=== PATIENT | male | born 1950 | race Caucasian/White ===

== ENCOUNTER → 2016-05-18 | Outpatient (CLI) | payer MEDICARE, OTHER ==
[2016-05-19 09:58] LABS: PROSTATE SPECIFIC ANTIGEN 4.8 ng/mL (0.0-4.0); PSA % FREE 18.3 % (.); PSA FREE 0.88 ng/mL
== END ==
LOC: OD 10:40
PROVIDERS: ATTEND Urology
DX: I10 Essential (primary) hypertension (principal); N40.1 Benign prostatic hyperplasia with lower urinary tract symptoms; R97.20 Elevated prostate specific antigen [PSA]
CPT/HCPCS: 36415; 84154

== ENCOUNTER → 2016-10-12 | Outpatient (CLI) | payer MEDICARE, OTHER ==
[2016-10-18 07:01] LABS: PROSTATE SPECIFIC ANTIGEN 9.6 ng/mL (0.0-4.0); PSA % FREE 18.9 % (.); PSA FREE 1.81 ng/mL
== END ==
LOC: OD 15:28
PROVIDERS: ATTEND Urology
DX: N40.1 Benign prostatic hyperplasia with lower urinary tract symptoms (principal); I10 Essential (primary) hypertension; R97.20 Elevated prostate specific antigen [PSA]; E29.1 Testicular hypofunction
CPT/HCPCS: 36415; 84154

== ENCOUNTER 2017-01-24 07:15 | Day surgery (SDC) | payer MEDICARE, OTHER ==
--- NOTE | 2017-01-18 09:08 | HISTORY AND PHYSICAL E ---
History and Physical NAME: CHITRA CLIFTON : 1950 AGE: 66Y ADMITTED: 01/24/2017 ROOM: CHIEF COMPLAINT: Reflux, history of Batres. PLAN: Upper endoscopy. I saw the patient in 2016 where he underwent upper endoscopy. MEDICATIONS: 1. Methadone. 2. Nexium. 3. Nitroglycerin. 4. Oxycodone. FAMILY HISTORY: Father has heart disease. Mom is living, she is above age 80. SOCIAL HISTORY: He smokes one-half pack per day. PHYSICAL EXAMINATION: GENERAL: Pleasant, alert, oriented. VITAL SIGNS: Blood pressure 120/60, pulse 80, respirations 16, temp is 98. HEAD, EYES, EARS, NOSE AND THROAT: Normal. ABDOMEN: Soft. NEUROLOGICAL: Exam negative. Patient did have colonoscopy in 2015 showing benign looking diminutive rectosigmoid polyps and diverticulosis. At this time, patient for upper scope. CONCLUSIONS: 1. Reflux. 2. Batres esophagus. PLAN: Upper scope. DICTATING PHYSICIAN: QUINTON MCKAY M.D. [id number] [facility]#: [id number] ID: [id number] JOB#: [id number] ACCT: [id number] cc:ELVER TEAGUE M.D., MAHMOUD M.D. >
--- NOTE | 2017-01-18 09:09 | HISTORY AND PHYSICAL E ---
History and Physical NAME: CHITRA CLIFTON : 1950 AGE: 66Y ADMITTED: 01/24/2017 ROOM: CHIEF COMPLAINT: Reflux, history of Batres's. Plan upper scope. HISTORY OF PRESENT ILLNESS: The patient was seen in 11/2015 for upper scope. Patient did have colonoscopy in 01/2016 showing diverticulosis. At this time, the patient presented regarding upper endoscopy. MEDICATIONS: 1. Nitroglycerin. 2. Nexium. 3. Oxycodone. 4. Aspirin. 5. Lansoprazole. 6. Amoxicillin. 7. Claritin. 8. Beclomethasone. 9. Prozac. FAMILY HISTORY: Father has heart disease. Mom is living. SOCIAL HISTORY: The patient smokes. PHYSICAL EXAMINATION: GENERAL: Pleasant, alert, oriented. VITAL SIGNS: Blood pressure 120/60, pulse 80, respirations 18, temp is 98. HEAD, EYES, EARS, NOSE, THROAT: Normal. NECK: Supple. LUNGS: Clear. ABDOMEN: Soft. NEUROLOGIC: Exam negative. CONCLUSION: 1. Reflux. 2. Batres's esophagus. PLAN: Upper scope, scheduled 01/24. DICTATING PHYSICIAN: QUINTON MCKAY M.D. [id number] PHY#: [id number] ID: [id number] JOB#: [id number] ACCT: [id number] cc:[facility] QUINTON AJ M.D. >
[2017-01-24] MEDS ORDERED: GLYCOPYRROLATE INJ 0.4 MG/2 ML VIAL ONE (07:26)
[2017-01-24] MEDS ORDERED: ONDANSETRON HCL INJ/PF 4 MG/2 ML SDV ONE (07:26)
[2017-01-24] MEDS ORDERED: NALOXONE HCL INJ/PF 0.4 MG/1 ML SDV ONE (07:26)
[2017-01-24] MEDS ORDERED: FLUMAZENIL INJ 0.5 MG/5 ML VIAL ONE (07:27)
[2017-01-24] MEDS ORDERED: FENTANYL CITRATE INJ/PF 100 MCG/2 ML AMPUL ONE (07:27)
[2017-01-24] MEDS ORDERED: MIDAZOLAM 2 MG/2 ML INJ ONE (07:27)
[2017-01-24] MEDS ORDERED: EPINEPHRINE INJ 1 MG/10 ML DISP.SYRIN ONE (07:27)
[2017-01-24] MEDS: MIDAZOLAM 2 MG/2 ML INJ ONE ×2 (08:12→08:15)
[2017-01-24 09:35] LABS: ABSOLUTE EOSINOPHILS # (AUTO) 0.5 10^3/uL (0.0-0.6); ABSOLUTE LYMPHOCYTES (AUTO) 1.7 10^3/uL (0.5-4.7); ABSOLUTE MONOCYTES (AUTO) 0.4 10^3/uL (0.1-1.4); ABSOLUTE NEUT (AUTO) 2.6 10^3/uL (1.7-8.2); BASOPHILS % (AUTO) 0.7 % (0-2); HEMATOCRIT 39.3 % (37.9-51.0); HEMOGLOBIN 13.6 g/dL (13.5-17.0); HGB HCT DIFFERENCE 1.5; LYMPHOCYTES % (AUTO) 32.8 % (13-45); MEAN CORPUSCULAR HEMOGLOBIN 31.4 pg (27.0-33.4); MEAN CORPUSCULAR HGB CONC 34.6 g/dL (32.0-36.0); MEAN CORPUSCULAR VOLUME 91 fl (80-97); MONOCYTES % (AUTO) 8.4 % (3-13); RED BLOOD COUNT 4.33 10^6/uL (4.35-5.55); RED CELL DISTRIBUTION WIDTH 13.5 % (11.5-14.0); SEGMENTED NEUTROPHILS % (AUTO) 48.1 % (42-78); WHITE BLOOD COUNT 5.3 10^3/uL (4.0-10.5)
[2017-01-24 09:37] VITALS: BP 143/77
--- NOTE | 2017-01-24 14:45 | DISCHARGE SUMMARY E ---
Discharge Summary NAME: CHITRA CLIFTON : 1950 AGE: 66Y ADMITTED: 01/24/2017 DISCHARGED: 01/24/2017 PROCEDURE: EGD with biopsy. HISTORY: Patient is 66. Underwent upper scope showing Batres's esophagus. Biopsy obtained. No evidence of malignancy. Patient does have history of multiple upper and lower scope. Today's upper scope shows distal esophagitis with Batres's esophagus. Biopsy obtained. No evidence of malignancy. No ulcers. FINAL DIAGNOSIS: 1. Batres's esophagus. 2. Chronic reflux. 3. History of colon polyps. PLAN: Continue PPI. Hold aspirin for 5 days. Baseline CBC and CEA. Patient to see us in the office in the next few days. Consideration for followup endoscopy in 1 year pending biopsy results. DICTATING PHYSICIAN: QUINTON MCKAY M.D. [id number] PHY#: [id number] ID: [id number] JOB#: [id number] ACCT: [id number] cc:ELVER TEAGUE M.D., MAHMOUD M.D. >
--- NOTE | 2017-01-24 14:45 | OPERATIVE REPORT E ---
Operative Report NAME: CHITRA CLIFTON : 1950 AGE: 66Y DATE OF SURGERY: 01/24/2017 ROOM: PREOPERATIVE DIAGNOSES: 1. Reflux. 2. Batres's. POSTOPERATIVE DIAGNOSES: 1. Reflux. 2. Batres's esophagus. PROCEDURES: 1. Esophagoscopy. 2. Gastroscopy. 3. Duodenoscopy. SURGEON: QUINTON MCKAY M.D. TISSUE REMOVED OR ALTERED: Multiple esophageal biopsies. ANESTHESIA: Versed 3, fentanyl 100. DESCRIPTION OF PROCEDURE: Baby scope passed under guided vision, no difficulties. Esophagoscopy junction at 40. Distal Batres's esophagus. No evidence of malignancy. Biopsy obtained. Gastroscopy: No ulcers. Mild gastritis. Duodenoscopy: Duodenal bulb normal. Descending duodenum normal. CONCLUSION: 1. Mild gastritis. 2. Distal esophagitis. 3. Batres's esophagus. PLAN: Hold aspirin, nonsteroidal 5 days. Awaiting biopsy results. Continue PPI. Consider followup upper endoscopy after a year pending biopsy results. DICTATING PHYSICIAN: QUINTON MCKAY M.D. [id number] Y#: [id number] ID: [id number] JOB#: [id number] ACCT: [id number] cc:ELVER TEAGUE M.D., MAHMOUD M.D. >
== END 2017-01-24 10:50 | disposition home or self-care (01) ==
LOC: END 07:15
PROVIDERS: ATTEND Specialist
PROC: 0DB48ZX Excision of Esophagogastric Junction, Via Natural or Artificial Opening Endoscopic, Diagnostic (ICD-10-PCS; principal; 2017-01-24 08:00)
DX: K22.70 Barrett's esophagus without dysplasia (principal); K21.9 Gastro-esophageal reflux disease without esophagitis; K29.70 Gastritis, unspecified, without bleeding; R97.0 Elevated carcinoembryonic antigen [CEA]; F17.210 Nicotine dependence, cigarettes, uncomplicated; Z86.010 Personal history of colon polyps; Z79.899 Other long term (current) drug therapy; Z79.82 Long term (current) use of aspirin
CPT/HCPCS: 43239; 36415; 82962; 82378; 85025; 88305 ×2; J2250; J3010; J2405; J0171; J2310; J3490

== ENCOUNTER 2017-08-06 07:30 | Day surgery (SDC) | payer MEDICARE, OTHER ==
[~2017-08-06 07:30] MED LIST: PROPOFOL INJ 200 MG/20 ML VIAL IV ONE
[2017-08-06] MEDS ORDERED: PROPOFOL INJ 200 MG/20 ML VIAL IV ONE (08:49)
[2017-08-06 09:14] VITALS: BP 119/75
--- NOTE | 2017-08-06 12:47 | Operative Report ---
Operative Report DATE OF SURGERY: 08/06/17 Operative Report: The risks, benefits and alternatives of the procedure including risks of bleeding, perforation requiring surgery are explained to the patient in detail and informed consent is obtained. Patient is taken back to the endoscopy suite and placed in the left, lateral decubital position. Timeout was called. Propofol medications administered. A rectal examination is done which did not reveal any masses, tears or fissures. An Olympus videoscope was inserted into the patient's rectum. The scope was then carefully advanced all the way to the cecum. The cecum was identified by the usual anatomical landmarks including the ileocecal valve as well as the appendiceal office. Photodocumentation was obtained. The scope was then sequentially pulled back via the various segments of the colon including the ascending colon, hepatic flexure, transverse colon, splenic flexure, descending colon and finally in to the rectosigmoid portions of the colon. Retroflexion maneuvers performed. The risks benefits and alternatives of the procedure explained to the patient in detail and informed consent is obtained.A GIF Olympus video scope was inserted into the patient's mouth and hypopharynx, the esophagus is identified intubated and insufflated, the scope was then advanced through the esophagus stomach and duodenum, retroflexion maneuver is done, the esophagus stomach and first and second portions of the duodenum examined PREOPERATIVE DIAGNOSIS: Known history of Batres's esophagus. Colorectal cancer screening POSTOPERATIVE DIAGNOSIS: Right side colon Inflammation status post biopsy rule out collagenous colitis. Diverticulosis. Internal hemorrhoids. Gastritis status post biopsy rule out Helicobacter pylori. Batres's esophagus proven by biopsy in the past now for ablation OPERATION: Colonoscopy with biopsy. EGD with ablation. EGD with biopsy SURGEON: DIANNA GILL ANESTHESIA: LMAC TISSUE REMOVED OR ALTERED: As noted above. COMPLICATIONS: None. ESTIMATED BLOOD LOSS: None. INTRAOPERATIVE FINDINGS: As noted above. PROCEDURE: Patient tolerated procedure well. No immediate postprocedure complications are noted. Patient discharged in good condition. Discharge date August 06, 2017 Discharge diet: Regular. Discharge activity: Regular. 2-3 week follow-up to discuss findings. Patient is instructed to call the office or proceed to the emergency room should there be any further problems or questions. We will await pathology. Surveillance for retreatment of Batres's in 1 year.
== END 2017-08-06 09:17 | disposition home or self-care (01) ==
LOC: END 07:30
PROVIDERS: ATTEND Internal Medicine Gastroenterology
PROC: 0DB68ZX Excision of Stomach, Via Natural or Artificial Opening Endoscopic, Diagnostic (ICD-10-PCS; principal; 2017-08-06 08:30)
PROC: 0DBF8ZX Excision of Right Large Intestine, Via Natural or Artificial Opening Endoscopic, Diagnostic (ICD-10-PCS; 2017-08-06 08:30)
DX: K22.70 Barrett's esophagus without dysplasia (principal); Z12.11 Encounter for screening for malignant neoplasm of colon; K52.9 Noninfective gastroenteritis and colitis, unspecified; K57.30 Diverticulosis of large intestine without perforation or abscess without bleeding; K64.8 Other hemorrhoids; K29.50 Unspecified chronic gastritis without bleeding; K62.89 Other specified diseases of anus and rectum; R01.1 Cardiac murmur, unspecified; I25.2 Old myocardial infarction; Z88.8 Allergy status to other drugs, medicaments and biological substances; Z88.6 Allergy status to analgesic agent
CPT/HCPCS: 43270; 43239; 45380; 82962; 88342 ×2; 88305 ×2; J2704; 813

== ENCOUNTER → 2018-07-09 | Outpatient (CLI) | payer MEDICARE, OTHER ==
--- NOTE | 2018-07-09 16:10 | RADIOLOGY REPORT (SQ) ---
EXAM DESCRIPTION: MRI LUMBAR SPINE WITHOUT COMPLETED DATE/TIME: 07/09/2018 2:26 pm REASON FOR STUDY: LUMBAR RADICULOPATHY (M54.16) M54.16 RADICULOPATHY, LUMBAR REGION COMPARISON: None. TECHNIQUE: Sagittal and Axial imaging includes T1, T2, STIR and gradient echo sequences. Coronal T2/ HASTE imaging. LIMITATIONS: None. FINDINGS: VISUALIZED UPPER ABDOMEN: Renal cysts are present. SEGMENTATION: No transitional anatomy. The lowest well-developed disc space is labeled L5-S1. ALIGNMENT: Anatomic. VERTEBRAE: Intact. BONE MARROW: Normal. No marrow replacement or reactive changes. DISC SIGNAL: Normal. No significant abnormal signal or loss of height. POSTERIOR ELEMENTS: Generally intact. No pars defect evident. HARDWARE: None in the spine. CORD AND CONUS: Normal in size and signal intensity. Conus at the T12-L1 level. SOFT TISSUES: No aortic aneurysm seen. No bulky retroperitoneal adenopathy or mass. No paraspinal mas s or fluid. L1-L2: No significant spinal stenosis or exit foraminal stenosis. L2-L3: No significant spinal stenosis or exit foraminal stenosis. L3-L4: There is mild circumferential disc bulging with no significant central canal or foraminal sten osis. L4-L5: There appears to be a small extruded disc fragment posterior to the L4 vertebral body that dis torts the thecal sac and narrows the inferior recess of the neural foramen but does not entrap the ex iting nerve. Hypertrophic facet changes and ligamentum flavum hypertrophy narrow the spinal canal in transverse diameter. L5-S1: Shallow broad-based disc bulge with no central canal or foraminal stenosis. LOWER THORACIC: Incompletely imaged. No stenosis seen. SACRUM: Visualized upper sacrum intact. OTHER: No other significant findings. IMPRESSION: Mild disc bulges as described. There is what appears to be a small extruded disc fragme nt at L4 as described. This distorts the thecal sac on the right. There is facet arthropathy at L4- 5. TECHNICAL DOCUMENTATION: JOB ID: [id number] [employer]- All Rights Reserved Reading location - IP/workstation name: [email or web address]
== END ==
LOC: RAD 12:34
PROVIDERS: ATTEND Internal Medicine
DX: M54.16 Radiculopathy, lumbar region (principal)
CPT/HCPCS: 72148

== ENCOUNTER 2018-09-16 08:46 | Day surgery (SDC) | payer MEDICARE, OTHER ==
[2018-09-16] MEDS ORDERED: GLYCOPYRROLATE INJ 0.4 MG/2 ML VIAL ONE (09:52)
[2018-09-16] MEDS ORDERED: PROPOFOL INJ 200 MG/20 ML VIAL IV ONE (10:02)
[2018-09-16 11:18] VITALS: BP 129/76
--- NOTE | 2018-09-16 13:13 | Operative Report ---
Operative Report DATE OF SURGERY: 09/16/18 Operative Report: The risks, benefits and alternatives of the procedure the risk of bleeding, perforation requiring surgery have been explained to the patient in detail and informed consent has been obtained. Patient is brought back to the endoscopy suite and placed in the left, lateral decubital position. Timeout was called. Propofol medication is administered. Rectal examination is done which did not reveal any masses, tears or fissures. An Olympus videoscope was introduced into the patient's rectum. The scope was then carefully advanced all the way to the cecum. The cecum was identified by the usual anatomical landmarks of the ileocecal valve as well as the appendiceal office. Photodocumentation is obtained. The scope was then sequentially pulled back via the various segments of the colon including the ascending colon, hepatic flexure, transverse colon, splenic flexure, descending colon and finally into the rectosigmoid portions of the colon. Retroflexion maneuvers performed. The risks benefits and alternatives of the procedure explained to the patient in detail and informed consent is obtained.A GIF Olympus video scope was inserted into the patient's mouth and hypopharynx, the esophagus is identified intubated and insufflated, the scope was then advanced through the esophagus stomach and duodenum retroflexion maneuver is done ,the esophagus stomach and first and second portions of the duodenum examined. PREOPERATIVE DIAGNOSIS: Personal history of polyp. Previous history of Batres's with unknown degree of dysplasia POSTOPERATIVE DIAGNOSIS: Mild inflammation noted on the right side of the colon status post biopsy. internal hemorrhoids. Gastritis status post biopsy without Helicobacter pylori. [place] of Batres's esophagus that ablated using radiofrequency ablation. OPERATION: Colonoscopy with biopsy. EGD with radiofrequency ablation. EGD with biopsy SURGEON: DIANNA GILL ANESTHESIA: LMAC TISSUE REMOVED OR ALTERED: As noted above. COMPLICATIONS: None. ESTIMATED BLOOD LOSS: None. INTRAOPERATIVE FINDINGS: As noted above. PROCEDURE: Patient tolerated the procedure well. No immediate postprocedure complications are noted. Patient is discharged in good condition. Discharge date 09/16/2018. Discharge diet: Regular. Discharge activity regular. 2 to 3-week follow-up to discuss findings. Patient is instructed to call the office or proceed to the emergency room should there be any further proximal questions. I will wait on the pathology. 5-year surveillance colonoscopy.
== END 2018-09-16 10:47 | disposition home or self-care (01) ==
LOC: END 08:46
PROVIDERS: ATTEND Internal Medicine Gastroenterology
DX: K63.89 Other specified diseases of intestine (principal); K52.9 Noninfective gastroenteritis and colitis, unspecified; K44.9 Diaphragmatic hernia without obstruction or gangrene; K64.8 Other hemorrhoids; K29.50 Unspecified chronic gastritis without bleeding; K22.70 Barrett's esophagus without dysplasia; Z86.010 Personal history of colon polyps; I10 Essential (primary) hypertension; E11.9 Type 2 diabetes mellitus without complications; R01.1 Cardiac murmur, unspecified; Z79.51 Long term (current) use of inhaled steroids; Z79.82 Long term (current) use of aspirin; Z79.899 Other long term (current) drug therapy
CPT/HCPCS: 43270; 43239; 45380; 88342 ×2; 88305 ×2; J2704

== ENCOUNTER → 2019-01-03 | Outpatient (CLI) | payer MEDICARE, OTHER ==
--- NOTE | 2019-01-03 14:43 | RADIOLOGY REPORT (SQ) ---
EXAM DESCRIPTION: MRI CERVICAL SPINE WITHOUT COMPLETED DATE/TIME: 01/03/2019 2:25 pm REASON FOR STUDY: CERVICAL RADICULOPATHY (M54.12) M54.16 RADICULOPATHY, LUMBAR REGION M54.12 RADIC ULOPATHY, CERVICAL REGION COMPARISON: 10/22/2010 TECHNIQUE: Sagittal and Axial imaging includes T1, T2, STIR and gradient echo sequences. LIMITATIONS: None. FINDINGS: ALIGNMENT: Slight reversal of the normal cervical lordosis. VERTEBRAE: Intact. BONE MARROW: Normal. No marrow replacement or reactive changes. DISCS: Annular disc bulging throughout the cervical spine with disc space narrowing and loss of giulia l water signal. HARDWARE: None in the spine. CORD AND BASE OF BRAIN: Normal in size and signal intensity. SOFT TISSUES: No soft tissue masses. C1-C2: No significant spinal stenosis. C2-C3: No significant spinal stenosis or exit foraminal stenosis. C3-C4: Broad-based disc/osteophyte complex with slight effacement anterior thecal sac. Slight asymme tric narrowing of the right neural foramina. C4-C5: Broad-based disc/osteophyte complex with mild central stenosis and bilateral foraminal stenosi s. C5-C6: Broad-based disc/ osteophyte complex. Mild central canal narrowing. Bilateral foraminal narr owing right greater than left. C6-C7: Broad-based annular disc bulging. This is asymmetric on the left resulting in asymmetric left foraminal narrowing. C7-T1: Broad-based annular disc bulging with bilateral foraminal narrowing left greater than right. UPPER THORACIC: Incompletely imaged. No significant spinal stenosis or exit foraminal stenosis. OTHER: No other significant finding. IMPRESSION: Multilevel spondylosis which has progressed since 2010. Broad-based disc/ osteophyte complex at C3-4 with asymmetric narrowing of the right neural foramina. Broad-based disc/ osteophyte complex at C4-5 with mild central stenosis and bilateral foraminal steno sis. Mild central canal narrowing at C5-C6 with bilateral foraminal narrowing right greater than left. Th is is secondary to a broad-based disc/ osteophyte complex. Asymmetric narrowing of the left neural foramina at C6-C7. Bilateral foraminal narrowing at C7-T1. TECHNICAL DOCUMENTATION: JOB ID: [id number] [employer]- All Rights Reserved Reading location - IP/workstation name: [email or web address]
--- NOTE | 2019-01-03 15:14 | RADIOLOGY REPORT (SQ) ---
EXAM DESCRIPTION: MRI LUMBAR SPINE WITHOUT COMPLETED DATE/TIME: 01/03/2019 2:24 pm REASON FOR STUDY: LUMBAR RADICULOPATHY (M54.16) M54.16 RADICULOPATHY, LUMBAR REGION M54.12 RADICUL OPATHY, CERVICAL REGION COMPARISON: None. TECHNIQUE: Sagittal and Axial imaging includes T1, T2, STIR and gradient echo sequences. Coronal T2/ HASTE imaging. LIMITATIONS: None. FINDINGS: VISUALIZED UPPER ABDOMEN: Limited evaluation. No acute or suspicious findings suggested. SEGMENTATION: No transitional anatomy. The lowest well-developed disc space is labeled L5-S1. ALIGNMENT: Anatomic. VERTEBRAE: Intact. BONE MARROW: Normal. No marrow replacement or reactive changes. DISC SIGNAL: Decreased signal intensity particularly at L2-3, L3-4, and L5-S1. POSTERIOR ELEMENTS: Generally intact. No pars defect evident. HARDWARE: None in the spine. CORD AND CONUS: Normal in size and signal intensity. Conus at the T12-L1 level. SOFT TISSUES: Renal cysts. No aortic aneurysm. L1-L2: No significant spinal stenosis or exit foraminal stenosis. L2-L3: Mild concentric disc bulging slightly asymmetrical to the left. No central canal or foraminal stenosis. L3-L4: Mild concentric disc bulging. No central canal or foraminal stenosis. L4-L5: Mild concentric disc bulging that is slightly asymmetrical to the right. May contact the exit ing nerve root outside of the neural foramen. L5-S1: No significant spinal stenosis or exit foraminal stenosis. LOWER THORACIC: Incompletely imaged. No stenosis seen. SACRUM: Visualized upper sacrum intact. OTHER: No other significant findings. IMPRESSION: Mild disc changes as described. Most significant finding appears to be at L4-5 where th e bulging disc may contact the exiting nerve root outside of the right neural foramen. TECHNICAL DOCUMENTATION: JOB ID: [id number] [employer]- All Rights Reserved Reading location - IP/workstation name: [email or web address]
== END ==
LOC: RAD 13:05
PROVIDERS: ATTEND Internal Medicine
DX: M54.16 Radiculopathy, lumbar region (principal); M54.12 Radiculopathy, cervical region; M48.02 Spinal stenosis, cervical region
CPT/HCPCS: 72141; 72148

== ENCOUNTER 2019-06-29 07:15 | Emergency (ER) | payer MEDICARE, OTHER ==
[2019-06-29 07:23] VITALS: BP 130/77
[2019-06-29] MEDS ORDERED: ONDANSETRON 4 MG TAB.RAPDIS PO ONE (08:06)
[2019-06-29] MEDS ORDERED: LIDOCAINE 2% INJ (20 MG/ML) 20 ML MDV INJ ONE (10:05)
[2019-06-29] MEDS ORDERED: DIPH/PERTUSS(ACELL)/TETANUS VAC/PF 0.5 ML SYR (>=10YO) IM ONE (10:48)
--- NOTE | 2019-06-29 10:55 | ER Document Report ---
ED Head/Face/Scalp Injury - General Chief Complaint: Head Injury Stated Complaint: FALL/LACERATION ABOVE EYE Time Seen by Provider: 06/29/19 09:18 Primary Care Provider: ELVER TEAGUE MD [Primary Care Provider] - Follow up as needed Notes: 69-year-old man presents to the emergency department with a history of a fall early this morning from his bed hitting the dresser sustaining laceration above the right. He denies loss of consciousness he is not on blood thinners. Patient does not remember when his last tetanus was given. He sustained a 4 cm jagged laceration above the eye and into the brow. TRAVEL OUTSIDE OF THE [place] IN LAST 30 DAYS: No - Related Data Allergies/Adverse Reactions: cimetidine [From Tagamet] Allergy (Severe, Verified 06/29/19 07:29) anger tuberculin, purified protein deriva Allergy (Severe, Verified 06/29/19 07:29) PPD CONVERTER naproxen Allergy (Mild, Verified 06/29/19 07:29) GI upset Past Medical History - Social History Smoking Status: Never Smoker Chew tobacco use (# tins/day): No Frequency of alcohol use: None Drug Abuse: None Family History: Reviewed & Not Pertinent Patient has suicidal ideation: No Patient has homicidal ideation: No - Past Medical History Cardiac Medical History: Reports: Hx Coronary Artery Disease, Hx Hypertension, Hx Heart Murmur Denies: Hx Congestive Heart Failure, Hx Heart Attack Pulmonary Medical History: Reports: Hx Bronchitis - WEARS O2 AT 2L AT NIGHT/ ASBESTOS IN LUNGS , Hx Pneumonia, Hx Tuberculosis - hx of Denies: Hx Asthma, Hx COPD Neurological Medical History: Denies: Hx Cerebrovascular Accident, Hx Seizures GI Medical History: Reports: Hx Gastroesophageal Reflux Disease, Hx Hepatitis - hepatitis b, Hx Ulcer Musculoskeletal Medical History: Reports Hx Arthritis, Reports Hx Muscle Weakness - right arm weakness Infectious Medical History: Reports: Hx Hepatitis - hepatitis b Past Surgical History: Reports: Hx Bowel Surgery - abdominal hernia, Hx Cardiac Catheterization - stent x1. Denies: Hx Pacemaker - Immunizations Hx Diphtheria, Pertussis, Tetanus Vaccination: Yes Hx Pneumococcal Vaccination: 03/07/14 Review of Systems - Review of Systems Notes: Constitutional: Negative for fever. HENT: Negative for sore throat. Eyes: Negative for visual changes. Cardiovascular: Negative for chest pain. Respiratory: Negative for shortness of breath. Gastrointestinal: Negative for abdominal pain, vomiting or diarrhea. Genitourinary: Negative for dysuria. Musculoskeletal: Negative for back pain. Skin: + Laceration right supraorbital Neurological: Negative for headaches, weakness or numbness. 10 point ROS negative except as marked above and in HPI. Physical Exam - Vital signs Vitals: Temp Pulse Resp BP Pulse Ox 97.8 F 59 L 18 130/77 H 96 06/29/19 07:21 06/29/19 07:21 06/29/19 07:21 06/29/19 07:21 06/29/19 07:21 - Notes Notes: PHYSICAL EXAMINATION: Physical Exam: General: Well-nourished well-developed and in no acute distress HEENT: NC/AT, pupils equal round and reactive to light, MM moist,nares clear, oropharynx clear, airway patent, 4 cm laceration right supraorbital region irregularly shaped with active bleeding. Neck: supple, no adenopathy, no masses. Good range of motion Lungs: clear, no wheezing, no rales no rhonchi CVS: Regular rate and rhythm no murmur gallop or rub Abdomen: Soft, active, nontender, no masses, no hepatosplenomegaly Ext: No edema, clubbing or cyanosis. Neuro: GCS 15. Alert and responsive, moving all 4 extremities on command, cranial nerves intact, no focal findings Skin: As noted above. PSYCH: Normal mood, normal affect. Course - Re-evaluation Re-evalutation: 06/29/19 10:52 Laceration was repaired using 5-0 Vicryl suture, a dressing was applied to the area the patient was given a tetanus booster. I explained to him that the wound would be healed over the next 5 days he is covered with antibiotics for a short period and will follow-up with his primary care doctor for recheck. - Vital Signs Vital signs: Temp Pulse Resp BP Pulse Ox 97.8 F 59 L 18 130/77 H 96 06/29/19 07:21 06/29/19 07:21 06/29/19 07:21 06/29/19 07:21 06/29/19 07:21 Procedures - Laceration/Wound Repair Right Face Time completed: 10:35 Wound length (cm): 4 Wound's Depth, Shape: Irregular Laceration pre-procedure: Betadine prep applied Anesthetic type: 2% Lidocaine Volume Anesthetic (mLs): 3 Wound explored: Clean, No foreign body removed Wound Repaired With: Sutures Suture Size/Type: 5:0, Vicryl Number of Sutures: 8 Layer Closure?: No Post-procedure wound care: Sterile dressing applied Post-procedure NV exam normal: Yes Complications: No Discharge - Discharge Clinical Impression: Laceration of right side of forehead with complication Qualifiers: Encounter type: initial encounter Qualified Code(s): S01.81XA - Laceration without foreign body of other part of head, initial encounter Condition: Good Disposition: HOME, SELF-CARE Instructions: Antibiotic Ointment Protection (OM), Laceration Care (OM), Prophylactic Antibiotic (OM), Tetanus Immunization Given ([facility]) Additional Instructions: You were treated for a laceration with laceration repair in the emergency department today. Please take the antibiotics as were prescribed Keflex 500 mg twice daily for the next 5 days. And follow-up with your primary care doctor for recheck of the area and suture removal if needed. Sutures were used were absorbable and may resorb without requiring removal. You have any concerns or further difficulties you may return to the emergency department. Prescriptions: Cephalexin Monohydrate [Keflex 500 mg Capsule] 500 mg PO BID 5 Days capsule Referrals: ELVER TEAGUE MD [Primary Care Provider] - Follow up as needed
== END 2019-06-29 11:40 | disposition home or self-care (01) ==
LOC: ER 07:15
PROC: 0HQ1XZZ Repair Face Skin, External Approach (ICD-10-PCS; principal; 2019-06-29)
DX: S01.81XA Laceration without foreign body of other part of head, initial encounter (principal); W22.03XA Walked into furniture, initial encounter; Z88.8 Allergy status to other drugs, medicaments and biological substances; I25.10 Atherosclerotic heart disease of native coronary artery without angina pectoris
CPT/HCPCS: 99282; 90471; 90715; 12013; J3490; A9270; S0119

== ENCOUNTER → 2019-07-04 | Outpatient (CLI) | payer MEDICARE, OTHER ==
--- NOTE | 2019-07-04 13:47 | RADIOLOGY REPORT (SQ) ---
EXAM DESCRIPTION: MRI CERVICAL SPINE WITHOUT COMPLETED DATE/TIME: 07/04/2019 12:23 pm REASON FOR STUDY: RADICULOPATHY, CERVICAL REGION M54.12 RADICULOPATHY, CERVICAL REGION COMPARISON: 01/03/2019 TECHNIQUE: Sagittal and Axial imaging includes T1, T2, STIR and gradient echo sequences. LIMITATIONS: None. FINDINGS: ALIGNMENT: Normal. VERTEBRAE: Intact. BONE MARROW: Normal. No marrow replacement or reactive changes. DISCS: Disc space narrowing from C3-T1 with marginal osteophytes. Decreased T2 signal intensity. HARDWARE: None in the spine. CORD AND BASE OF BRAIN: Normal in size and signal intensity. SOFT TISSUES: No soft tissue masses. C1-C2: No significant spinal stenosis. C2-C3: No significant spinal stenosis or exit foraminal stenosis. C3-C4: Broad-based disc/osteophyte complex with central prominence narrows the anterior CSF space but does not deform the spinal cord. [place] the right neural foramen. C4-C5: Broad-based disc/osteophyte complex with mild central canal stenosis and foraminal stenoses, r ight more than left. C5-C6: Broad-based disc/osteophyte complex with foraminal narrowing, right more than left. C6-C7: Mild foraminal narrowing, right more than left secondary to uncovertebral osteophytes. C7-T1: Broad-based disc/osteophyte complex with foraminal narrowing bilaterally. UPPER THORACIC: Incompletely imaged. No significant spinal stenosis or exit foraminal stenosis. OTHER: No other significant finding. IMPRESSION: Extensive cervical degenerative disc disease and spondylosis with findings as described above. Most significant finding appears to be at C4-5 with a central canal stenosis and bilateral fo raminal stenoses. Foraminal stenoses are present multiple levels. TECHNICAL DOCUMENTATION: JOB ID: [id number] 2010 [employer]- All Rights Reserved Reading location - IP/workstation name: [email or web address]
== END ==
LOC: RAD 11:36
PROVIDERS: ATTEND Internal Medicine
DX: M50.13 Cervical disc disorder with radiculopathy, cervicothoracic region (principal); M48.03 Spinal stenosis, cervicothoracic region
CPT/HCPCS: 72141

== ENCOUNTER → 2019-07-29 | Outpatient (CLI) | payer MEDICARE, OTHER ==
--- NOTE | 2019-07-29 12:25 | RADIOLOGY REPORT (SQ) ---
EXAM DESCRIPTION: FOREARM LEFT; ELBOW LEFT >2 VIEWS COMPLETED DATE/TIME: 07/29/2019 10:37 am REASON FOR STUDY: PAIN IN LEFT WRIST;PAIN IN UNSPECIFIED JOINT; PAIN IN LEFT WRIST;PAIN IN UNSPECIFI ED JOINT; PAIN IN LEFT SHOULDER COMPARISON: None. FINDINGS: Four views left elbow: Normal. Bones intact. No effusion. Two views left forearm: Normal. No fracture or bone lesion. Soft tissues within normal. TECHNICAL DOCUMENTATION: JOB ID: [id number] Reading location - IP/workstation name: [email or web address]
--- NOTE | 2019-07-29 12:25 | RADIOLOGY REPORT (SQ) ---
EXAM DESCRIPTION: FOREARM LEFT; ELBOW LEFT >2 VIEWS COMPLETED DATE/TIME: 07/29/2019 10:37 am REASON FOR STUDY: PAIN IN LEFT WRIST;PAIN IN UNSPECIFIED JOINT; PAIN IN LEFT WRIST;PAIN IN UNSPECIFI ED JOINT; PAIN IN LEFT SHOULDER COMPARISON: None. FINDINGS: Four views left elbow: Normal. Bones intact. No effusion. Two views left forearm: Normal. No fracture or bone lesion. Soft tissues within normal. TECHNICAL DOCUMENTATION: JOB ID: [id number] Reading location - IP/workstation name: [email or web address]
--- NOTE | 2019-07-29 12:27 | RADIOLOGY REPORT (SQ) ---
EXAM DESCRIPTION: SHOULDER LEFT 2 OR MORE VIEWS COMPLETED DATE/TIME: 07/29/2019 10:37 am REASON FOR STUDY: PAIN IN LEFT WRIST;PAIN IN UNSPECIFIED JOINT; PAIN IN LEFT SHOULDER COMPARISON: None. NUMBER OF VIEWS: Three views left shoulder. LIMITATIONS: None. FINDINGS: There is no acute or significant bone, joint or soft tissue abnormality. OTHER: No other significant finding. IMPRESSION: NORMAL STUDY. TECHNICAL DOCUMENTATION: JOB ID: [id number] Reading location - IP/workstation name: [email or web address]
== END ==
LOC: OD 10:16
PROVIDERS: ATTEND Internal Medicine
DX: M25.50 Pain in unspecified joint (principal); M25.532 Pain in left wrist; M25.512 Pain in left shoulder